=== PATIENT | female | born 1975 | race Caucasian/White ===

== ENCOUNTER 2021-12-18 07:16 | Day surgery (SDC) | payer MEDICARE, MEDICAID ==
[~2021-12-18] VITALS: Ht 171.4 cm; Wt 110.0 kg
[2021-12-18] VITALS (7 sets, daily range): BP systolic 120–160; BP diastolic 70–84; PULSE 56–70; TEMP 96.4–97.5
[2021-12-18] MEDS ORDERED: GLUCOPHAGE XR500 M1 PO (08:41)
[2021-12-18] MEDS ORDERED: ENBREL50 MG/1 ML SQ (08:43)
[2021-12-18] MEDS ORDERED: ZYRTEC 10MG10 MG PO (08:44)
[2021-12-18] MEDS ORDERED: PROTONIX 40MG T40 MG PO (08:44)
[2021-12-18] MEDS ORDERED: ASPIRIN E.C. 8181 MG PO (08:45)
[2021-12-18] MEDS ORDERED: CYMBALTA 60MG60 MG PO (08:46)
[2021-12-18] MEDS ORDERED: NATURE'S BLE1000 MCG (08:46)
[2021-12-18] MEDS ORDERED: NEURONTIN300 MG/CAP PO (08:50)
[2021-12-18] MEDS ORDERED: CRESTOR5 MG PO (08:51)
[2021-12-18] MEDS ORDERED: NEURONTIN600 MG/TAB PO (08:51)
[2021-12-18] MEDS ORDERED: ZANAFLEX 4MG TAB4 MG PO (08:53)
[2021-12-18] MEDS ORDERED: PRILOSEC 20MG20 MG PO (08:53)
[2021-12-18] MEDS ORDERED: PRINZIDE 12.5 M1 TAB PO (08:54)
[2021-12-18] MEDS ORDERED: ARAVA10 MG PO (08:55)
[2021-12-18] MEDS ORDERED: OMEGA-3 FISH1000 MG PO (08:56)
[2021-12-18] MEDS ORDERED: MULTI VITAMINS1 TAB PO (08:56)
[2021-12-18] MEDS ORDERED: RELAFEN 50500 MG/TAB PO (08:57)
[2021-12-18] MEDS ORDERED: ROXICODONE 55 MG/TAB PO (08:58)
--- NOTE | 2021-12-18 11:35 | NUR ---
Pt returned via cart from PACU. Resting with eyes closed and drowsy but arousable easily. Denies needs at this time. Ice in place on shoulder with abduction sling in place-c/d/i. VSS-see flowsheet. Spouse brought back to room upon pt return. Pt on room air. Able to feel touch to right fingers, fingers warm and pink with good cap refill. Side rails up, call light in reach. Lights dimmed for pt to rest at this time.
--- NOTE | 2021-12-18 13:40 | NUR ---
Pts VS remain stable-see flowsheet. Tolerated sprite and pudding. Able to ambulated to bathroom and void without difficulty. Denies pain or nausea. CMS WNL. MAHI remains in abduction sling. IV removed, pressure dressing applied. Pt dressed with assistance of . Discharge teaching completed, pt and verbalized understanding and denied questions. Taken via wheelchair to private vehicle for dc home with driving.
== END 2021-12-18 13:40 | disposition home or self-care (01) ==
LOC: SDCO 07:16
DX: S43.431A Superior glenoid labrum lesion of right shoulder, initial encounter (principal); M75.41 Impingement syndrome of right shoulder; I10 Essential (primary) hypertension; F17.210 Nicotine dependence, cigarettes, uncomplicated; X58.XXXA Exposure to other specified factors, initial encounter
CPT/HCPCS: A4619; C1713; J0330; J0690; J1100; J2250; J2405; J2704; J2795; J3010; J7120

== ENCOUNTER 2023-11-15 04:43 | Observation (INO) | payer MEDICARE, MEDICAID ==
[2023-11-15] VITALS (9 sets, daily range): BP systolic 111–143; BP diastolic 77–86; PULSE 64–81; TEMP 96.1–97.8
[~2023-11-15] VITALS: Ht 160 cm; Wt 113.6 kg
[~2023-11-15 04:43] MED LIST: ARAVA10 MG PO; ASPIRIN E.C. 8181 MG PO; CRESTOR5 MG PO; CYMBALTA 60MG60 MG PO; ENBREL50 MG/1 ML SQ; GLUCOPHAGE XR500 M1 PO; MULTI VITAMINS1 TAB PO; NATURE'S BLE1000 MCG; NEURONTIN300 MG/CAP PO; NEURONTIN600 MG/TAB PO; OMEGA-3 FISH1000 MG PO; PRILOSEC 20MG20 MG PO; PRINZIDE 12.5 M1 TAB PO; PROTONIX 40MG T40 MG PO; RELAFEN 50500 MG/TAB PO; ROXICODONE 55 MG/TAB PO; ZANAFLEX 4MG TAB4 MG PO; ZYRTEC 10MG10 MG PO
[2023-11-15 05:02] LABS: BASO # 0.1 K/mm3 (0.0-0.2); EOS # 0.2 K/mm3 (0.0-0.7); EOS % 1.3 % (0.0-4.0); GRAN # 9.1 K/mm3 (1.4-6.5); GRAN % 73.2 % (42.2-75.2); HEMOGLOBIN 17.9 g/dl (12.5-16.0); LYMPH # 2.4 K/mm3 (1.2-3.4); LYMPH % 19.1 % (20.0-51.0); MEAN CELL VOLUME 86 fl (80.0-100.0); MEAN CORPUSCULAR HEMOGLOBIN 29 pg (27-31); MEAN CORPUSCULAR HGB CONC 34 g/dl (33.0-37.0); MEAN PLATELET VOLUME 10.6 fl (7.4-10.4); MONO # 0.7 K/mm3 (0.1-0.6); MONO % 5.2 % (1.7-9.3); PLATELET COUNT 289 K/mm3 (130-400); RED BLOOD COUNT 6.15 M/mm3 (4.10-5.30); REDCELL DISTRIBUTION WIDTH-CV 13.5 % (11.5-14.5)
[2023-11-15 05:03] LABS: HEMATOCRIT 52.6 % (37.0-47.0)
[2023-11-15] MEDS ORDERED: fentaNYL 50 MCG/ML 2 ML VIAL IV ONE ×2 (05:15→07:45)
[2023-11-15 05:25] LABS: ALBUMIN 4.2 g/dL (3.5-5.0); BILIRUBIN,TOTAL 1.4 mg/dL (0.2-1.2); CALCIUM 10.7 mg/dL (8.4-10.2); CREATININE, serum 1.08 mg/dL (0.57-1.11); POTASSIUM 4.5 mEq/L (3.5-4.5); TOTAL PROTEIN 7.8 g/dl (6.2-8.1)
[2023-11-15] MEDS ORDERED: LR 1,000 ML IV ONE ×2 (05:30→06:45)
[2023-11-15] MEDS ORDERED: Iohexol 300 - 100 ML VIAL IV ONE (05:46)
[2023-11-15] MEDS ORDERED: NS 50 ML IV ONE (05:51)
[2023-11-15 07:58] LABS: COLLECTION METHOD CLEAN CATCH
[2023-11-15] MEDS ORDERED: Ondansetron 4 MG/2 ML VIAL IV ONE (08:00)
[2023-11-15 08:09] LABS: URINE APPEARANCE CLEAR (CLEAR/HAZY); URINE BLOOD 1+ (NEGATIVE); URINE COLOR YELLOW (YELLOW); URINE GLUCOSE NEGATIVE (NEGATIVE); URINE KETONE NEGATIVE (NEGATIVE); URINE NITRATE NEGATIVE (NEGATIVE); URINE PROTEIN(semi-quant) 1+ (NEGATIVE)
[2023-11-15 08:22] LABS: MUCOUS PRESENT (NOT PRESENT); URINE BACTERIA RARE /hpf (NONE SEEN)
--- NOTE | 2023-11-15 08:36 | NUR ---
Report from Er nurse. Patient to room 327. Alert and oriented. Reports pain to mid abdomen. Constant aching with stabbing with movement. Patient had received pain medication prior to arrival to floor. Patient also reports episode of emesis prior to coming to floor. Oral hygiene supplies provided with her brushing her teeth. Mouth swabs provided. Assessment completed. Int to [facility]. She is to remain NPO. Will await on physician orders.
[2023-11-15] MEDS ORDERED: HYDROmorphone 0.5 MG/0.5 ML SYRINGE IV PRN (09:00)
[2023-11-15] MEDS ORDERED: NS 1,000 ML IV SCH (09:00)
[2023-11-15] MEDS ORDERED: Ondansetron 4 MG/2 ML VIAL IV PRN (12:00)
[2023-11-15] MEDS ORDERED: Dextrose 50% Water 25 GM/50 ML SYRINGE IV PRN (12:00)
[2023-11-15] MEDS ORDERED: hydrALAZINE 20 MG/ML 1 ML VIAL IV PRN (12:00)
[2023-11-15] MEDS ORDERED: Dextrose (Glucose) 15 GM (4 x 3.75 GM) Chewable TABLET PACK PO PRN (12:00)
[2023-11-15] MEDS ORDERED: Insulin Lispro (HumaLOG) SQ SCH (12:00)
[2023-11-15] MEDS ORDERED: cefTRIAXone 1 G in Water For Injection,Sterile 10 ML IV SCH (12:00)
[2023-11-15] MEDS ORDERED: Glucagon 1 MG VIAL IM PRN (12:00)
--- NOTE | 2023-11-15 12:02 | NUR ---
Data: Patient declined spiritual care visit offered during Clinical Study Manager rounds. Patient stated she is nauseous. Patient declined having Clinical Study Manager notify RN because RN is already aware. Assessment: None at this time. Plan of Care: Chaplains will remain available as needed/requested while Patient is admitted to this hospital.
[2023-11-15] MEDS ORDERED: metroNIDAZOLE 100 ML IV SCH (12:15)
--- NOTE | 2023-11-15 13:01 | NUR ---
Patient reporting in bed. rounded. Orders obtained and plan of care reviewed. Patient reports pain and nausea increased. Medications as ordered. Denies other need at this time
--- NOTE | 2023-11-15 18:28 | NUR ---
Patient continues to rest. Few ice chips as requested. IVF as ordered. Will report off to nightnurse
[2023-11-16] VITALS (11 sets, daily range): BP systolic 111–143; BP diastolic 79–87; PULSE 69–84; TEMP 97.5–98
[2023-11-16 06:30] LABS: BASO % 0.5 % (0.0-2.0); EOS # 0.2 K/mm3 (0.0-0.7); EOS % 2.9 % (0.0-4.0); GRAN # 4.1 K/mm3 (1.4-6.5); GRAN % 63.1 % (42.2-75.2); LYMPH # 1.6 K/mm3 (1.2-3.4); LYMPH % 23.8 % (20.0-51.0); MEAN CELL VOLUME 90 fl (80.0-100.0); MEAN CORPUSCULAR HGB CONC 32 g/dl (33.0-37.0); MONO # 0.6 K/mm3 (0.1-0.6); MONO % 9.5 % (1.7-9.3); RED BLOOD COUNT 5.02 M/mm3 (4.10-5.30); REDCELL DISTRIBUTION WIDTH-CV 13.8 % (11.5-14.5)
[2023-11-16 06:54] LABS: CALCIUM 8.6 mg/dL (8.4-10.2); CREATININE, serum 0.93 mg/dL (0.57-1.11); MAGNESIUM 1.7 mg/dL (1.6-2.6)
--- NOTE | 2023-11-16 07:00 | NUR ---
Pt resting in bed. Bedside report received. Pt requested warm blanket and ice chips. No further needs at this time. Call light within reach.
[2023-11-16 07:42] LABS: HEMOGLOBIN 14.3 g/dl (12.5-16.0); MEAN CORPUSCULAR HEMOGLOBIN 28 pg (27-31); PLATELET COUNT 107 K/mm3 (130-400)
[2023-11-16] MEDS ORDERED: DULoxetine 60 MG CAP PO SCH (09:00)
--- NOTE | 2023-11-16 09:00 | NUR ---
Pt a&ox4. VSS. C/o pain 07/20. PRN pain meds administered. Shift assessment complete. Pt resting in bed. IV fluids running through peripheral IV in RAC. Pt is up w/ SBA. No further needs at this time. Call light and personal belongings within reach.
--- NOTE | 2023-11-16 13:20 | NUR ---
Pt tolerating clear liquid diet. C/o pain 04/19 at this time that is tolerable for pt.
--- NOTE | 2023-11-16 14:25 | NUR ---
SW met with patient to complete intake assessment and discuss discharge planning. Patient reports that she currently resides in [place] with her 6 children, NOK is Coby Kaufman( daughter) [phone]. Patient informed SW that her spouse Jeremy Bunch passed a year ago, MARIELA will send notification to admissions/registration on the update on patient's chart. Patient reports that she is independent with her ADLs and currently not using any DMEs. Patient shared that her PCP is PRAVEENA Berry in [place] and pharmacy of choice is [facility]. Patient is anticipating to return back to her home pending any further medical recommendations.
--- NOTE | 2023-11-16 17:47 | NUR ---
Pt has been resting all afternoon. No c/o pain throughout the afternoon or at this time. Pt still tolerating clears great. No further needs at this time. Call light within reach.
[2023-11-17] VITALS (7 sets, daily range): BP systolic 120–147; BP diastolic 70–95; PULSE 67–72; TEMP 97.7–98.2
[2023-11-17] MEDS ORDERED: Acetaminophen 500 MG TAB PO PRN (09:30)
[2023-11-17] MEDS ORDERED: oxyCODONE 5 MG TAB PO PRN (09:30)
--- NOTE | 2023-11-17 09:42 | NUR ---
Patient resting in bed. Main complaint this am is her low back hurting, chronic pain with reports of her bed being uncomfortable. Spoke with and PO pain medications ordered. Diet progress and ordered. She denies abdominal pain and nausea. Reports passing flatus. Hospitalist rounding.
[2023-11-17] MEDS ORDERED: FLAGYL500 MG PO (09:59)
[2023-11-17] MEDS ORDERED: CIPRO 500MG TA500 MG PO (09:59)
--- NOTE | 2023-11-17 10:01 | NUR ---
Initial visit; Patient had been sleeping and is now waking up. She thanked Reimbursement Representative for looking in on her and offering Spiritual Care. Reimbursement Representative will keep Aracelis in her prayers.
--- NOTE | 2023-11-17 10:13 | NUR ---
SW attended clinical rounds. SW followed up with patient to is stable for discharge pending tolerance of lunch. Patient stated she has transportation arranged and only needs to call them when she is ready for discharge. No further needs identified. Discharge plan: Home
--- NOTE | 2023-11-17 10:45 | NUR ---
Patient tolerating breakfast. hopeful for discharge home tmrw
[2023-11-17] MEDS ORDERED: ZOFRAN 4MG T4 MG/TAB PO (12:35)
--- NOTE | 2023-11-17 12:36 | NUR ---
Natalee Mederos made aware of patient doing well of general diet and hopful to discharge home
--- NOTE | 2023-11-17 14:23 | NUR ---
Patient given all discharge instructions while on her cell phone, not much interest in education given. Did review follow up appt. Medication list with last dose taken reviewed. Patient denies questions or concerns. Awaiting her ride home.
--- NOTE | 2023-11-17 14:38 | NUR ---
Patient wheeld out with all belongigns.
== END 2023-11-17 14:39 | disposition home or self-care (01) ==
LOC: COL.ER 04:43 → SURG 07:35
PROVIDERS: Emergency Medicine; ADMIT Internal Medicine
DX: K56.609 Unspecified intestinal obstruction, unspecified as to partial versus complete obstruction (principal); N39.0 Urinary tract infection, site not specified; I10 Essential (primary) hypertension; E11.9 Type 2 diabetes mellitus without complications; E78.5 Hyperlipidemia, unspecified; F32.A Depression, unspecified; F17.210 Nicotine dependence, cigarettes, uncomplicated; Z79.899 Other long term (current) drug therapy; Z79.84 Long term (current) use of oral hypoglycemic drugs
CPT/HCPCS: G0378; J0696; J1171; J1836; J2405; J3010; J7030; J7120; Q9967